=== PATIENT | male | born 1980 | race Caucasian/White ===

== ENCOUNTER → 2017-01-27 | Outpatient (CLI) | payer OTHER ==
[~2017-01-27] MED LIST: IBUPROFEN400 MG PO; MOBIC15 MG PO
--- NOTE | ~2017-01-27 | EKG ---
PATIENT: MARIBELL MAYO UNIT #: [id number] Ventricular Rate: 91 BPM Atrial Rate: 91 BPM P-R Interval: 170 ms QRS Duration: 88 ms Q-T Interval: 340 ms QTC Calculation(Bezet): 418 ms P [place]: 27 degrees Calculated R [place]: 4 degrees Calculated T [place]: 6 degrees Diagnosis Line: Normal sinus rhythm Diagnosis Line: Normal ECG Diagnosis Line: No previous ECGs available Diagnosis Line: Confirmed by MITCH BOYD MD ([id number]) on Diagnosis Line: 01/28/2017 2:57:56 PM INTERPRETING MD: CHRIS
== END | disposition home or self-care (01) ==
LOC: CAMB 12:00
DX: Z01.810 Encounter for preprocedural cardiovascular examination (principal)
CPT/HCPCS: 93005

== ENCOUNTER → 2017-02-03 | Day surgery (SDC) | payer OTHER ==
--- NOTE | ~2017-02-03 | OR ---
Unit #: [id number] #: [id number] Patient: MARIBELL MAYO [id number] [facility]. [address] [place], [place] [address] [id number] O MR#: [id number] NAME: MARIBELL MAYO ROOM: Date of Procedure: 02/03/2017 Admission Date: 02/03/2017 Surgeon: Ruben Valente Jr., M.D. : 1980 Attending Physician: Ruben Valente Jr., M.D. Referring Physician: Ruben Valente Jr., M.D. Primary Care Physician: Primary Care Physician No OPERATIVE REPORT INDICATION FOR PROCEDURE The patient is a 36-year-old white male, who recently presented to the office complaining of multiple lipomatous masses. He has had a lipoma removed from his left back in the past. These have been causing a lot of pain and he desired removal of those. He has 3 on the right arm, 1 on the left arm, 5 on the back and several on the thighs that he desires removal of. He is brought in this time for excision of these all under local anesthesia with MAC anesthesia. The patient understands the procedure including the risks, including that of recurrence, bleeding, infection and poor healing and consents. PREOPERATIVE DIAGNOSIS Multiple lipomas as described above. POSTOPERATIVE DIAGNOSES Multiple lipomas as described above, noting the largest approximately 6 cm in diameter and the smaller ones approximately 1.5 cm in diameter. ANESTHESIA MAC anesthesia with 0.5% lidocaine with epinephrine locally. PROCEDURE PERFORMED Excision of multiple lipomas as noted above. DESCRIPTION OF PROCEDURE The patient was positioned in lateral decubitus position with the right side down after being prepped and draped in routine fashion, was anesthetized locally in the area of 5 separate lipomas. These were all numbed up with 0.5% lidocaine with epinephrine and transverse incisions were made over each one anywhere from 1 inch to 2.5 inches and these were carried down through subcutaneous tissue with lipomatous mass being encountered in each incision. These were completely excised from the surrounding tissue. Hemostasis was achieved with Bovie cautery. Specimens were put on the back table and the deeper tissue was approximated with interrupted 3-0 Vicryl sutures. Skin edges were approximated with stainless-steel skin clips and skin stapling device. The patient was then placed on his back and he had the 3 removed from the right arm the same way as the back and one on the left arm the same way as the back and then re-prepped and draped and had the ones on the thighs anteriorly, both removed in similar fashion. Estimated blood loss for the entire procedure less than 20 mL. The patient received less than 1000 mL crystalloid solution during the procedure. Sponges and instrument counts Unit #: [id number] #: [id number] Patient: MARIBELL MAYO were correct x3. No drains were used. No complications. The patient was discharged in satisfactory condition. Dictated by... Ruben Valente Jr. MAbrahan. JOSE DANIEL/ryanne TD: 02/04/2017 00:00 JOB #: [id number] OPERATIVE REPORT Page 1 of 1 X Ruben Valente MD X PROCEDURE OPERATIVE NOTE
== END | disposition home or self-care (01) ==
LOC: CSUR 06:22
DX: E65 Localized adiposity (principal); L90.5 Scar conditions and fibrosis of skin; Q82.8 Other specified congenital malformations of skin; J45.909 Unspecified asthma, uncomplicated; I10 Essential (primary) hypertension; K21.9 Gastro-esophageal reflux disease without esophagitis; E66.9 Obesity, unspecified; Z68.36 Body mass index [BMI] 36.0-36.9, adult; Z87.891 Personal history of nicotine dependence; Z79.1 Long term (current) use of non-steroidal anti-inflammatories (NSAID); Z98.890 Other specified postprocedural states
CPT/HCPCS: 88304; J2250; J3010